=== PATIENT | male | born 1995 | race Two or more races ===

== ENCOUNTER 2024-09-30 19:50 | Emergency (ER) | payer OTHER ==
[~2024-09-30] VITALS: Ht 172.7 cm; Wt 70.0 kg
[2024-09-30] MEDS: OLANZAPINE 10 MG/VIAL IM ONE (20:36)
[2024-09-30] MEDS: MIDAZOLAM HCL 2 MG/2 ML VIAL IM ONE (20:36)
[2024-09-30 20:58] VITALS: O2SAT 95
[2024-09-30 21:18] LABS: BASOPHILS % 0.5 % (0.0-2.0); EOSINOPHILS % 0.0 % (0.0-5.0); HEMATOCRIT. 40.0 % (42.0-52.0); HEMOGLOBIN. 13.7 g/dL (14.0-18.0); LYMPHOCYTES % 12.7 % (20.0-50.0); MEAN PLATELET VOLUME 8.6 fl (7.4-10.4); MONOCYTES % 4.7 % (2.0-8.0); NEUTROPHILS % 82.1 % (40.0-76.0); PLATELET 193 x1000/uL (130-400); RED BLOOD CELL COUNT 4.54 mill/uL (4.7-6.1); RED CELL DISTRIBUTION WIDTH 12.5 % (11.6-14.6)
[2024-09-30 21:36] LABS: CREATININE 0.8 mg/dL (0.6-1.3); ETHANOL BLOOD 212 mg/dL (<10); UREA NITROGEN BLOOD 7 mg/dL (9-23)
[2024-09-30] MEDS: SODIUM CHLORIDE 0.9% 1,000 ML IV ONE (22:29)
[2024-10-01 01:49] LABS: *AMPHETAMINES SCREEN URINE NEGATIVE (NEGATIVE); *BARBITURATES SCREEN URINE NEGATIVE (NEGATIVE); *BENZODIAZEPINES SCREEN URINE PRESUMPTIVE POSITIVE (NEGATIVE); *COCAINE SCREEN URINE NEGATIVE (NEGATIVE); CANNABINOID URINE SCREEN PRESUMPTIVE POSITIVE (NEGATIVE); ECSTASY MDMA SCREEN URINE NEGATIVE (NEGATIVE); METHADONE URINE SCREEN NEGATIVE (NEGATIVE); OPIATES URINE SCREEN NEGATIVE (NEGATIVE); PHENCYCLIDINE URINE SCREEN NEGATIVE (NEGATIVE)
[2024-10-01 02:00] LABS: CLARITY URINE CLEAR (CLEAR); COLOR URINE YELLOW (YELLOW)
[2024-10-01 02:02] LABS: SPECIFIC GRAVITY URINE 1.011 (1.005-1.030)
[2024-10-01 02:03] LABS: PH URINE 6.0 (4.5-8.0); PROTEIN URINE 2+ (NEGATIVE)
[2024-10-01 02:04] LABS: GLUCOSE URINE NEGATIVE (NEGATIVE); KETONES URINE NEGATIVE (NEGATIVE)
[2024-10-01 02:05] LABS: NITRITE URINE NEGATIVE (NEGATIVE); OCCULT BLOOD URINE TRACE (NEGATIVE); UROBILINOGEN URINE 1.0 E.U./dL (0.2-1.0)
[2024-10-01 02:06] LABS: LEUKOCYTE ESTERASE URINE NEGATIVE (NEGATIVE)
[2024-10-01 02:47] LABS: SQUAMOUS EPITHELIAL CELL URINE FEW /lpf (RARE/1+)
[2024-10-01 02:48] LABS: BACTERIA URINE NONE SEEN; RBC URINE 0-2 /hpf (0-2); WBC URINE 0-2 /hpf (0-2)
[2024-10-01 02:56] VITALS: BP 122/77; PULSE 62; RESP 16; O2SAT 98
== END 2024-10-01 03:23 ==
LOC: ER 19:50
DX: F10.10 Alcohol abuse, uncomplicated (principal); F19.90 Other psychoactive substance use, unspecified, uncomplicated; R07.9 Chest pain, unspecified; Z79.899 Other long term (current) drug therapy; Z98.890 Other specified postprocedural states
CPT/HCPCS: 80305; 80048; 81003; 80307; 80329; 80320; 85025; 36415; 70450; 72125; 93005; 96360; 96372; 99291; J3490; J2250; J7030; Z7610 ×2; A6449; G0480